=== PATIENT | female | born 1995 | race Caucasian/White ===

== ENCOUNTER 2017-01-28 20:58 | Emergency (ER) | payer BC ==
[~2017-01-28] VITALS: Ht 162.6 cm; Wt 90.9 kg
[~2017-01-28 20:58] MED LIST: ACET1TAB40 PO; CEPH-443 PO; IBUP-1542 PO; OFLO5DRO7 RIGHT EAR; TYL500 PO; ZOF8 PO
[2017-01-28 21:59] VITALS: Ht 162.6 cm; Wt 90.9 kg
[2017-01-29] MEDS ORDERED: IBUP-1542 PO (00:21)
[2017-01-29] MEDS ORDERED: IBUPROFEN 200 MG TAB PO ONE (00:30)
--- NOTE | 2017-01-29 01:16 | ERD ---
ER Documentation Chief Complaint Date/Time DATE: 01/29/17 TIME: 01:14 Chief Complaint C/O SEVERE SUNBURN TO BODY. NOW C/O LATASHA ARM PAIN AND SWELLING HPI 21-year-old female presents here in emergency department for complains of sunburn in the upper body area and bilateral arms area, patient complains of pain throbbing burning pain 8/10 scale, is worse upon touching the areas. Patient denies any blisters. Patient denies any open wounds. Patient denies any fever or chills. Patient did not take any medications up with symptoms. ROS All systems reviewed and are negative except as per history of present illness. Medications Home Meds Active Scripts Ibuprofen* (Motrin*) 600 Mg Tab, 600 MG PO Q6H Y for PAIN AND OR ELEVATED TEMP, #30 TAB Prov:MARIO KNUTSON NP 01/29/17 Acetaminophen-Codeine* (Acetaminophen-Cod #3*) 300-30 Mg Tab, 1 TAB PO Q4H Y for PAIN, #10 TAB Prov:TONIA LAWTON MD 04/03/16 Ibuprofen* (Motrin*) 600 Mg Tab, 600 MG PO Q6, #14 TAB Prov:TONIA LAWTON MD 04/03/16 Cephalexin* (Keflex*) 500 Mg Capsule, 500 MG PO QID for 7 Days, CAP Prov:TONIA LAWTON MD 04/03/16 Ofloxacin* (Floxin* Otic) 0.3% -10 Ml Soln, 5 DROP RIGHT EAR BID for 10 Days, BOTTLE Prov:TONIA LAWTON MD 04/03/16 Acetaminophen* (Tylenol*) 500 Mg Tab, 500 MG PO Q4H Y for MILD PAIN LEVEL 1-3, # 14 TAB Prov:TONIA LAWTON MD 10/01/15 Ondansetron Hcl* (Zofran* ODT) 8 mg -ODT Tab.disper, 8 MG PO Q6 Y for NAUSEA AND /OR VOMITING, #6 TAB Prov:TONIA LAWTON MD 10/01/15 Allergies Allergies: Coded Allergies: acetaminophen (Verified Allergy, Severe, HIGH BLOOD PRESSURE, 01/28/17) SEVERE NAUSEA. hydrocodone (Verified Allergy, Severe, HIGH BLOOD PRESSURE, 01/28/17) SEVERE NAUSEA. No Known Drug Allergies (Verified Allergy, Mild, 11/06/10) PMhx/Soc Medical and Surgical Hx: pt denies Medical Hx, pt denies Surgical Hx History of Surgery: No Anesthesia Reaction: No Hx Neurological Disorder: No Hx Respiratory Disorders: No Hx Cardiac Disorders: No Hx Psychiatric Problems: No Hx Miscellaneous Medical Probl: No Hx Alcohol Use: No Hx Substance Use: No Hx Tobacco Use: No Smoking Status: Never smoker FmHx Family History: No coronary disease, No diabetes, No other Physical Exam Vitals Vital Signs Date Time Temp Pulse Resp B/P Pulse Ox O2 Delivery O2 Flow Rate FiO2 01/28/17 21:59 98.4 67 18 129/69 100 Physical Exam GENERAL: The patient is well developed and appropriate for usual state of health, in no apparent distress. CHEST: Clear to auscultation bilaterally. There are no rales, wheezes or rhonchi. HEART: Regular rate and rhythm. No murmurs, clicks, rubs or gallops. No S3 or S4. ABDOMEN: Soft, nontender and nondistended. Good bowel sounds. No rebound or guarding. No gross peritonitis. No gross organomegaly or masses. No Bowen sign or McBurney point tenderness. BACK: No midline or flank tenderness. EXTREMITIES: Equal pulses bilaterally. There is no peripheral clubbing, cyanosis or edema. No focal swelling or erythema. Full range of motion. Grossly neurovascularly intact. NEURO: Alert and oriented. Cranial nerves 2-12 intact. Motor strength in all 4 extremities with 5/5 strength. Sensation grossly intact. Normal speech and gait. SKIN: Noted first-degree sunburn wound on the upper chest area upper back upper extremities, no open wounds noted. There is no apparent ecchymosis or petechia. The skin is warm and dry. HEMATOLOGIC AND LYMPHATIC: There is no evidence of excessive bruising or lymphedema. No gross cervical, axillary, or inguinal lymphadenopathy. Results 24 hrs Current Medications Medications (Trade) Dose Ordered Sig/Mert Route PRN Reason Start Time Stop Time Status Last Admin Dose Admin Ibuprofen (Motrin) 400 mg ONCE ONCE PO 01/29/17 00:30 01/29/17 00:31 DC 01/29/17 00:35 Patient was given medication for pain here in emergency department, after treatment, patient verbalized feeling much better. Patient's pain is improved. Procedures/MDM Medical decision making: Patient symptoms would like is consistent with first- degree sunburn. No symptoms of any cellulitis or acute bacterial infection. No second-degree aguirre noted. Patient was given for ibuprofen for pain, is advised to buy [id number] aloe vera to light affected area, patient is advised to avoid scratching the area,keep it air dry, patient is advised to return to emergency department for any worsening symptoms, follow with primary care doctor in 2-3 days for reevaluation of symptoms. Patient was advised to use sunscreen whenever exposure to the sun at all times. Departure Diagnosis: Primary Impression: Sunburn Condition: Stable Patient Instructions: Sunburn Referrals: MARCELLA KOENIG MD (PCP) Additional Instructions: buy aloevera otc to help with symptoms MARIO KNUTSON NP January 29, 2017 01:16
== END 2017-01-29 00:39 | disposition home or self-care (01) ==
LOC: FTE 20:58
DX: L55.0 Sunburn of first degree (principal)
CPT/HCPCS: 99283